=== PATIENT | female | born 1970 | race Caucasian/White ===

== ENCOUNTER 2024-03-15 02:19 | Emergency (ER) | payer OTHER ==
[~2024-03-15] VITALS: Ht 162.6 cm; Wt 78.5 kg
[2024-03-15 02:25] VITALS: BP_SYST 180; PULSE 98; RESP 16; TEMP 97.4; O2SAT 99
[2024-03-15 02:51] LABS: BASOPHILS % (AUTO) 0.6 % (0.0-2.0); EOSINOPHILS # (AUTO) 0.1 K/uL (0.0-0.4); HEMATOCRIT 39.1 % (36-48); HEMOGLOBIN 13.3 g/dL (12.0-16.0); LYMPHOCYTES # (AUTO) 2.8 K/uL (1.0-5.5); LYMPHOCYTES % (AUTO) 41.5 % (20.5-51.5); MEAN CORPUSCULAR HEMOGLOBIN 30 pg (27-31); MEAN CORPUSCULAR HGB CONC 34 % (32-36); MEAN CORPUSCULAR VOLUME 89 fL (79.0-98.0); MONOCYTES # (AUTO) 0.4 K/uL (0.0-1.0); MONOCYTES % (AUTO) 5.5 % (1.7-9.3); NEUTROPHILS # (AUTO) 3.5 K/uL (1.8-7.7); NEUTROPHILS % (AUTO) 51.4 % (40.0-70.0); PLATELET COUNT (AUTO) 237 K/uL (130-430); RED BLOOD CELL COUNT(AUTO) 4.42 MIL/uL (4.2-6.2); RED CELL DISTRIBUTION WIDTH 14.4 % (9.0-15.0); WHITE BLOOD COUNT (AUTO) 6.8 K/uL (4.8-10.8)
[2024-03-15] MEDS: amLODIPine BESYLATE 10 MG TABLET PO ONE (02:58)
[2024-03-15 03:11] LABS: ANION GAP 11 (5-15); CALCIUM 8.9 mg/dL (8.4-11.0); CARBON DIOXIDE 27 mmol/L (23-29); CHLORIDE 106 mmol/L (98-107); CREATININE 0.73 mg/dL (0.55-1.30); GFR AFRICAN AMERICAN 108 mL/min (>90); GFR NON AFRICAN-AMERICAN 89 mL/min (>90); GLUCOSE 256 mg/dL (74-106); POTASSIUM 3.7 mmol/L (3.5-5.1); SODIUM SERUM 144 mmol/L (136-145); UREA NITROGEN, BLOOD 10 mg/dL (8-21)
[2024-03-15 03:47] VITALS: PULSE 89; O2SAT 100
[2024-03-15 03:49] VITALS: BP_SYST 148
== END 2024-03-15 04:25 | disposition home or self-care (01) ==
LOC: SED 02:19
DX: G51.0 Bell's palsy (principal); R03.0 Elevated blood-pressure reading, without diagnosis of hypertension; R06.02 Shortness of breath; R05.9 Cough, unspecified
CPT/HCPCS: 36415; 80048; 84484; 85025; 93005; 99284